=== PATIENT | male | born 1950 | race Caucasian/White ===

== ENCOUNTER 2025-07-25 09:46 | Outpatient (CLI) | payer MEDICARE, BC ==
[~2025-07-25 09:46] MED LIST: iohexol 350 MG/ML 50ML vial IV ONE
--- NOTE | 2025-07-25 17:18 | RADIOLOGY REPORT ---
CTA ABDOMEN AND PELVIS WITH BILATERAL LOWER EXTREMITY RUNOFFS Clinical Indication: ATHSCL [place] ARTERIES OF EXTRM W INTRMT CIRO, BI LEGS TECHNIQUE: Multiple contiguous axial images were obtained through the abdomen, pelvis, and both lower extremities following the administration of IV contrast material. Post processing coronal and sagittal reconstruction images were made from the axial images. Image post-processing was obtained. IV contrast: [id number] COMPARISON: None FINDINGS: Lower Thorax: Upper limits of normal-sized heart without pericardial effusion. At least mild coronary artery calcifications. Linear bibasilar scarring or atelectasis. Liver and Biliary system: Unremarkable. Spleen: Unremarkable. Adrenal Glands and Kidneys: Normal adrenal glands. Very mild bilateral renal cortical scarring. No hydronephrosis or nephrolithiasis. A tiny hypodensity in the right kidney on series 4, image 41 is too small to characterize though may reflect a cyst. Pancreas and Retroperitoneum: Unremarkable. Aorta and Major Vessels: Widely patent Normal caliber abdominal aorta with moderate mixed atherosclerotic plaque. Widely patent origins of the celiac axis, SMA, 2 right and 2 left renal arteries, and RAUL. Patent and normal caliber bilateral internal, common and external iliac arteries with moderate mixed atherosclerotic plaque. No dissection or aneurysm. Bowel, Mesentery and Peritoneal space: Normal caliber small and large bowel. Normal appendix. Normal appendix. No free air or fluid collection. Pelvis: There is prostatomegaly. Urinary bladder is mildly distended. There is no pelvic lymphadenopathy. Abdominal wall and Osseous Structures: Tiny sclerotic foci in the proximal femurs and pelvis, likely bone islands. Multilevel lumbar spondylosis. No destructive osseous lesion. Bilateral lower extremities: Right lower extremity: Patent and Normal caliber right common, superficial, and deep femoral arteries with [id number] calcified atherosclerotic plaque. Small caliber right popliteal artery. There is non opacification of the right posterior tibial artery just beyond the origin with minimal opacification distally. The right peroneal and anterior tibial arteries are patent with runoff to the foot. Normal mineralization and alignment. The joint spaces preserved. No acute fracture. Small radiopaque foreign body in the subcutaneous tissues of the medial mid chi. The Muscle bundles about the Right lower extremity are intact. Dorsal and plantar calcaneal enthesophytes. Left lower extremity: Patent and normal caliber left common femoral artery. There is moderate mixed atherosclerotic plaque in the left superficial femoral artery which becomes occluded distally. There is an occluded stent graft within the left popliteal artery. The distal popliteal artery demonstrates Reconstitution of blood flow. There is patent trifurcation arteries with runoff to the foot. Normal mineralization and alignment. The joint spaces preserved. No acute fracture. Dorsal and plantar calcaneal enthesophytes. IMPRESSION: 1. Widely patent aortoiliac vessels with moderate mixed atherosclerotic plaque. Patent origins of the abdominal aorta. 2. Moderate mixed atherosclerotic plaque in the left superficial femoral which becomes occluded distally. 3. Occluded stent graft in the left popliteal artery. The distal popliteal artery demonstrates reconstitution of blood flow. 4. Patent trifurcation arteries of the left leg with runoff to the foot. 5. Non opacification of the right posterior tibial artery just beyond the origin with minimal opacification distally. The right peroneal and anterior tibial arteries are patent with runoff to the foot. 6. Mild prostatomegaly. 7. At least mild calcified coronary artery disease.
== END 2025-07-25 23:59 | disposition home or self-care (01) ==
LOC: RAD 09:46
PROVIDERS: ATTEND Internal Medicine Interventional Cardiology
DX: I70.213 Atherosclerosis of native arteries of extremities with intermittent claudication, bilateral legs (principal); E78.5 Hyperlipidemia, unspecified; I11.9 Hypertensive heart disease without heart failure; Z79.01 Long term (current) use of anticoagulants; F17.290 Nicotine dependence, other tobacco product, uncomplicated; I70.0 Atherosclerosis of aorta; N28.1 Cyst of kidney, acquired; I25.10 Atherosclerotic heart disease of native coronary artery without angina pectoris
CPT/HCPCS: 75635; Q9967